=== PATIENT | female | born 1995 | race Caucasian/White ===

== ENCOUNTER 2017-04-17 11:33 | Emergency (ER) | payer OTHER ==
[2017-04-17 11:34] VITALS: BMI 21.9
[2017-04-17] MEDS ORDERED: Sodium Chloride 0.9% 1,000 ML IV STA (12:40)
[2017-04-17 13:09] LABS: RBC URINE 3 /hpf (0-3); URINE BILIRUBIN NEGATIVE (NEGATIVE); URINE BLOOD NEGATIVE (NEGATIVE); URINE COLOR Yellow (YELLOW); URINE GLUCOSE (UA) NORMAL (Normal); URINE KETONE NEGATIVE (NEGATIVE); URINE LEUKOCYTE ESTERASE NEG Leu/uL (Negative); URINE PROTEIN NEGATIVE (NEGATIVE); URINE UROBILINOGEN NORMAL mg/dL (0.2-1.0); WBC URINE 1 /hpf (0-5)
[2017-04-17 13:12] LABS: BASO # 0.1 K/uL (0.0-0.2); BASO % 0.6 % (0.0-2.0); EOS # 0.1 K/uL (0.0-0.7); EOS % 0.8 % (0.0-4.0); HEMATOCRIT 44.1 % (34.0-47.0); LYMPH # 2.8 K/uL (1.0-4.3); LYMPH % 33.4 % (20.0-40.0); MEAN CELL VOLUME 93.5 fL (81.0-99.0); MEAN CORPUSCULAR HEMOGLOBIN 32.1 pg (27.0-31.0); MEAN CORPUSCULAR HGB CONC 34.3 g/dL (33.0-37.0); MEAN PLATELET VOLUME 9.1 fL (7.2-11.7); MONO # 0.5 K/uL (0.0-0.8); MONO % 5.4 % (0.0-10.0); RED CELL DISTRIBUTION WIDTH 12.8 % (11.5-14.5); WHITE BLOOD COUNT 8.3 K/uL (4.8-10.8)
[2017-04-17 13:20] LABS: CHLORIDE 103 mmol/L (98-107)
[2017-04-17 13:21] LABS: POTASSIUM 3.9 mmol/L (3.6-5.2); SODIUM 137 mmol/L (132-148)
[2017-04-17 13:23] LABS: ALB/GLOB RATIO 1.2 (1.0-2.1); ALKALINE PHOSPHATASE 45 U/L (38-126); ALT/SGPT 34 U/L (9-52); AST/SGOT 27 U/L (14-36); BILIRUBIN,TOTAL 1.7 mg/dL (0.2-1.3); BLOOD UREA NITROGEN 11 mg/dL (7-17); CARBON DIOXIDE 21 mmol/L (22-30); GFR AFRICAN-AMERICAN > 60; TOTAL PROTEIN 8.8 g/dL (6.3-8.3)
[2017-04-17 13:24] LABS: CALCIUM 9.6 mg/dl (8.6-10.4); GLUCOSE,RANDOM 69 mg/dL (65-105)
--- NOTE | 2017-04-17 14:06 | US ---
Pelvic ultrasound History: Pelvic pain. Comparison: None available. Technique: Real-time sonography was performed through the pelvis utilizing transvaginal technique. Findings: Uterus: 6.8 x 4.1 x 5.0 centimeters. Retroverted. Heterogeneous echotexture. Endometrium measures 6 millimeters, within normal limits. Small amount of free fluid within the pelvic cul-de-sac. Right ovary: 2.9 x 2.3 x 2.9 centimeters. Normal flow. Left ovary: 2.8 x 1.8 x 2.2 centimeters. Normal flow. Impression: Small amount of free fluid within the pelvic cul-de-sac. Retroverted heterogeneous uterus. Otherwise unremarkable sonographic evaluation of the pelvis.
--- NOTE | 2017-04-17 14:09 | C.PDOC ---
History Of Present Illness 21 y/o female, with PMHx of ovarian cyst, presents to ED for evaluation of intermittent sharp suprapubic abdominal pain for the last 2 weeks. Denies n/v/d , urinary symptoms, fever, chills, or back pain. Notes her menstruation is late by 1 week. Time Seen by Provider: 04/17/17 11:55 Chief Complaint (Nursing): Abdominal Pain History Per: Patient History/Exam Limitations: no limitations Onset/Duration Of Symptoms: Days (2 weeks) Current Symptoms Are (Timing): Still Present Location Of Pain/Discomfort: Suprapubic Radiation Of Pain To:: None Quality Of Discomfort: "Pain" Associated Symptoms: denies: Loss Of Appetite, Back Pain, Chest Pain, Constipation, Urinary Symptoms Exacerbating Factors: None Alleviating Factors: None Recent travel outside of the [place]: No Additional History Per: Patient Abnormal Vaginal Bleeding: No Past Medical History Reviewed: Historical Data, Nursing Documentation, Vital Signs Vital Signs: Last Vital Signs Temp 98.2 F 04/17/17 16:00 Pulse 67 04/17/17 16:00 Resp 16 04/17/17 16:00 BP 113/74 04/17/17 16:00 Pulse Ox 98 04/17/17 16:00 Family History: States: Unknown Family Hx - Social History Hx Alcohol Use: No Hx Substance Use: No - Immunization History Hx Tetanus Toxoid Vaccination: No Hx Influenza Vaccination: No Hx Pneumococcal Vaccination: No Review Of Systems Except As Marked, All Systems Reviewed And Found Negative. Constitutional: Negative for: Fever, Chills Gastrointestinal: Positive for: Abdominal Pain. Negative for: Nausea, Vomiting , Diarrhea, Constipation Genitourinary: Negative for: Dysuria, Frequency, Hematuria, Vaginal Discharge Musculoskeletal: Negative for: Back Pain Physical Exam - Physical Exam Appears: Non-toxic, No Acute Distress Skin: Normal Color, Warm, Dry Head: Atraumatic, Normacephalic Eye(s): bilateral: Normal Inspection Oral Mucosa: Moist Neck: Normal ROM, Supple Chest: Symmetrical Cardiovascular: Rhythm Regular, No Murmur Respiratory: Normal Breath Sounds, No Rales, No Rhonchi, No Wheezing Gastrointestinal/Abdominal: Soft, Tenderness (mild right suprapubic), No Distention, No Guarding, No Rebound Back: No CVA Tenderness Extremity: Normal ROM Neurological/Psych: Oriented x3, Normal Speech, Normal Cognition ED Course And Treatment - Laboratory Results Result Diagrams: 04/17/17 13:07 04/17/17 13:07 O2 Sat by Pulse Oximetry: 100 (RA) Pulse Ox Interpretation: Normal - CT Scan/US Transvaginal US Other Rad Studies (CT/US): Read By Radiologist, Radiology Report Reviewed CT/US Interpretation: Accession No. : [id number]. Patient Name / ID : TOM MOLINA / [id number]. Exam Date : 04/17/2017 13:01:33 ( Approved ). Study Comment : Sex / Age : F / 21Y. Creator : Johnnie Ferris MD. Dictator : Johnnie Ferris MD. Divine Healer : Rn Physician Office : Johnnie Ferris MD. Approver2 : Report Date : 04/17/2017 14:03:58. My Comment : . Pelvic ultrasound. History: Pelvic pain. Comparison: None available. Technique: Real-time sonography was performed through the pelvis utilizing transvaginal technique. Findings: Uterus: 6.8 x 4.1 x 5.0 centimeters. Retroverted. Heterogeneous echotexture. Endometrium measures 6 millimeters, within normal limits. Small amount of free fluid within the pelvic cul-de-sac. Right ovary: 2.9 x 2.3 x 2.9 centimeters. Normal flow. Left ovary: 2.8 x 1.8 x 2.2 centimeters. Normal flow. Impression: Small amount of free fluid within the pelvic cul-de-sac. Retroverted heterogeneous uterus. Otherwise unremarkable sonographic evaluation of the pelvis. CT abdomen/pelvis Other Rad Studies (CT/US): Read By Radiologist, Radiology Report Reviewed CT/US Interpretation: Accession No. : [id number]. Patient Name / ID : TOM MOLINA / [id number]. Exam Date : 04/17/2017 17:53:55 ( Approved ). Study Comment : Sex / Age : F / 21Y. Creator : Manuel Jameson MD. Dictator : Manuel Jameson MD. Divine Healer : Rn Physician Office : Manuel Jameson MD. Approver2 : Report Date : 04/17/2017 19:00:31. My Comment : . PROCEDURE: CT Abdomen and Pelvis with contrast. HISTORY: RLQ pain. COMPARISON: None. TECHNIQUE: Contrast dose: 100 mL Visipaque 320. Radiation dose: Total exam DLP = 100 mL Visipaque 320 mGy-cm. This CT exam was performed using one or more of the following dose reduction techniques: Automated exposure control, adjustment of the mA and/or kV according to patient size, and/or use of iterative reconstruction technique. FINDINGS: LOWER THORAX : Unremarkable. LIVER: Unremarkable. No gross lesion or ductal dilatation. GALLBLADDER AND BILE DUCTS: Unremarkable. PANCREAS: Unremarkable. No gross lesion or ductal dilatation. SPLEEN: Unremarkable. ADRENALS: Unremarkable. No mass. KIDNEYS AND URETERS: Unremarkable. No hydronephrosis. No solid mass. VASCULATURE: Unremarkable. No aortic aneurysm. BOWEL: There is diffuse mural thickening of the stomach. This is a nonspecific finding and stomach is poorly distended, limiting the significance of this finding. Nevertheless, this may reflect a gastritis. There is no evidence of bowel obstruction. There is a curvilinear radiodensity in the proximal jejunum (series 3, image 57). This measures approximately 2.4 cm in length. It is intraluminal and likely ingested. Uncertain significance. APPENDIX: Normal appendix. PERITONEUM: Unremarkable. No free fluid. No free air. LYMPH NODES: Unremarkable. No enlarged lymph nodes. BLADDER: Unremarkable. REPRODUCTIVE: Normal uterus. BONES: No acute fracture. OTHER FINDINGS: None. IMPRESSION: Nonspecific diffuse gastric mural thickening. No evidence of appendicitis. No bowel obstruction. Curvilinear radiopacity in the proximal jejunum, uncertain significance. Otherwise unremarkable. Progress Note: Blood work, urinalysis, transvaginal ultrasound, Abdomen/pelvis CT ordered and reviewed. Patient was given IV fluids. On reassessment, patient is resting comfortably, abdomen remains soft. Patient feels comfortable going home. Patient will be discharged home with instructions to follow up with PMD in 1-2 days for further evaluation. Disposition - Disposition Disposition: HOME/ ROUTINE Disposition Time: 19:05 Condition: STABLE Additional Instructions: Follow up with PMD within 1-2 days. Return to ED if feel worse. Prescriptions: Dicyclomine [Bentyl] 20 mg PO TID #30 tab Ibuprofen [Motrin Tab] 600 mg PO Q8 #30 tab Ondansetron ODT [Zofran ODT] 4 mg PO .Q4-6H PRN #20 odt PRN Reason: Nausea/Vomiting Instructions: Acute Abdominal Pain (ED) Forms: [facility] (Lebanese) - Clinical Impression Clinical Impression: Abdominal pain - PA / RN [facility]PLE[facility] / Resident Statement MD/DO has reviewed & agrees with the documentation as recorded. - Scribe Statement The provider has reviewed the documentation as recorded by the Scribfred Jacques All medical record entries made by the Yumiko were at my direction and personally dictated by me. I have reviewed the chart and agree that the record accurately reflects my personal performance of the history, physical exam, medical decision making, and the department course for this patient. I have also personally directed, reviewed, and agree with the discharge instructions and disposition.
[2017-04-17] MEDS ORDERED: Iohexol 240 (50 ml) PO STA (14:32)
[2017-04-17] MEDS ORDERED: Iohexol 240 (50 ml) ONE (15:13)
[2017-04-17] MEDS ORDERED: Iodixanol 320 MG/ML 100 ML BOTTLE IV ONE (16:14)
[2017-04-17] MEDS ORDERED: Lidocaine 5% Patch TD ONE (16:40)
[2017-04-17] MEDS ORDERED: Lidocaine 5% Patch TD STA (16:42)
--- NOTE | 2017-04-17 19:02 | CT ---
PROCEDURE: CT Abdomen and Pelvis with contrast HISTORY: RLQ pain COMPARISON: None. TECHNIQUE: Contrast dose: 100 mL Visipaque 320 Radiation dose: Total exam DLP = 100 mL Visipaque 320 mGy-cm. This CT exam was performed using one or more of the following dose reduction techniques: Automated exposure control, adjustment of the mA and/or kV according to patient size, and/or use of iterative reconstruction technique. FINDINGS: LOWER THORAX: Unremarkable. LIVER: Unremarkable. No gross lesion or ductal dilatation. GALLBLADDER AND BILE DUCTS: Unremarkable. PANCREAS: Unremarkable. No gross lesion or ductal dilatation. SPLEEN: Unremarkable. ADRENALS: Unremarkable. No mass. KIDNEYS AND URETERS: Unremarkable. No hydronephrosis. No solid mass. VASCULATURE: Unremarkable. No aortic aneurysm. BOWEL: There is diffuse mural thickening of the stomach. This is a nonspecific finding and stomach is poorly distended, limiting the significance of this finding. Nevertheless, this may reflect a gastritis. There is no evidence of bowel obstruction. There is a curvilinear radiodensity in the proximal jejunum (series 3, image 57). This measures approximately 2.4 cm in length. It is intraluminal and likely ingested. Uncertain significance. APPENDIX: Normal appendix. PERITONEUM: Unremarkable. No free fluid. No free air. LYMPH NODES: Unremarkable. No enlarged lymph nodes. BLADDER: Unremarkable. REPRODUCTIVE: Normal uterus. BONES: No acute fracture. OTHER FINDINGS: None. IMPRESSION: Nonspecific diffuse gastric mural thickening. No evidence of appendicitis. No bowel obstruction. Curvilinear radiopacity in the proximal jejunum, uncertain significance. Otherwise unremarkable. .
[2017-04-17 19:06] VITALS: O2SAT 100
[2017-04-17 19:29] VITALS: BP 115/74; PULSE 76; RESP 18; TEMP 98.4
== END 2017-04-17 19:30 | disposition home or self-care (01) ==
LOC: C.ER 11:33
DX: R10.9 Unspecified abdominal pain (principal)
CPT/HCPCS: 74177; 76830; 80053; 81001; 84703; 85025; 99285; Q9966; Q9967